=== PATIENT | female | born 1960 | race American Indian/Alaskan Native ===

== ENCOUNTER 2018-09-25 14:00 | Outpatient (CLI) | payer BC ==
--- NOTE | 2018-09-25 15:55 | Mammography Report ---
BILATERAL DIGITAL SCREENING MAMMOGRAM with CAD: 09/25/18 14:00:00 CLINICAL: Routine screening. COMPARISON:10/05/14 FINDINGS: The breasts are heterogeneously dense, which may obscure small masses. A left focal asymmetry at 12 o'clock requires additional imaging.No architectural distortion or suspicious calcifications.The right breast is negative. IMPRESSION: Left asymmetry requiring further workup. BI-RADS CATEGORY: 0 -- Additional Imaging Evaluation Required RECOMMENDATION: Recall for left spot compression views and left breast ultrasound if needed. COMMENT: 1. Dense breast tissue, i.e., adenosis, fibrocystic changes, etc., may obscure an underlying neoplasm. 2. Approximately 10% of cancers are not detected with mammography. 3. A negative mammography report should not delay biopsy if a clinically suspicious mass is present. COMMENT: Patient follow-up letters are generated via our [employer] application.
== END 2018-09-25 14:01 | disposition home or self-care (01) ==
LOC: SPVWC 14:00
PROVIDERS: ATTEND Internal Medicine
DX: Z12.31 Encounter for screening mammogram for malignant neoplasm of breast (principal)
CPT/HCPCS: 77067

== ENCOUNTER 2018-10-21 09:22 | Outpatient (CLI) | payer BC ==
--- NOTE | 2018-10-21 12:13 | Ultrasound Report ---
LEFT BREAST DIAGNOSTIC MAMMOGRAM LEFT BREAST ULTRASOUND HISTORY: Asymmetry COMPARISON: 09/25/2018 screening FINDINGS: Left Breast Mammogram: Spot magnification views of the left breast were performed and demonstrate a persistent asymmetry. Left Breast Ultrasound: Sonographic evaluation of the left breast at 12:00 demonstrated an irregular cyst with internal echoes versus solid mass. It measures 7 x 5 x 4 mm. IMPRESSION A 7 mm cyst versus solid mass at 12:00 left breast. Recommend ultrasound guided needle aspiration and core biopsy. The patient was informed of the recommendation. BI-RADS 4 Signer Name: Paul Ivan MD Signed: 10/21/2018 11:58 AM Workstation Name: [id number]
--- NOTE | 2018-10-21 14:26 | Mammography Report ---
LEFT DIAGNOSTIC MAMMOGRAM AND LEFT ULTRASOUND HISTORY: Recalled for asymmetry COMPARISON: 09/25/2018 screening FINDINGS: Mammogram: Spot magnification views demonstrate a persistent retroareolar asymmetry at 12:00. Breast Ultrasound: Sonographic evaluation of the left breast at 12:00 demonstrated a slightly irregu lar cyst versus solid mass at 12:00 2 cm from the nipple. It measures 7 x 5 x 4 mm. IMPRESSION Irregular cyst versus solid mass at 12:00 2 cm from the nipple left breast. Recommend ultrasound guid ed needle aspiration/biopsy. The patient was informed of the recommendation at the time of the exam. BIRADS 4: Suspicious abnormality. According to the [employer], yearly mammograms are recommended starting at age 40 and continuing as long as a woman is in good health. Clinical Breast Exams should be part of a period ic health exam-about every 3 years for women in their 20s and 30s and every year for women 40 and ove r. Breast self exam is an option for women starting in their 20s. Any breast change noted on a breast self exam should be reported promptly to the patient's healthcare provider. Breast MRI is recommende d for women with an approximately 20-25% or greater lifetime risk of breast cancer, including women w ith a strong family history of breast or ovarian cancer and women who have been treated for Hodgkin's disease. A negative Mammography report should not discourage follow up or biopsy of a clinically significant f inding and/or abnormality. Dense breast tissue may obscure small neoplasms. Signer Name: Paul Ivan MD Signed: 10/21/2018 2:12 PM Workstation Name: [id number]
== END 2018-10-21 09:23 | disposition home or self-care (01) ==
LOC: SPVWC 09:22
PROVIDERS: ATTEND Internal Medicine
DX: R92.8 Other abnormal and inconclusive findings on diagnostic imaging of breast (principal)

== ENCOUNTER 2018-11-28 10:09 | Outpatient (CLI) | payer BC ==
--- NOTE | 2018-11-28 11:39 | Mammography Report ---
DIGITAL DIAGNOSTIC MAMMOGRAM WITH CAD, 11/28/2018, POST PROCEDURE CLIP PLACEMENT INDICATION: Postprocedure clip placement following biopsy of left breast mass TECHNIQUE: Digital left mammographic imaging was performed. This examination was interpreted with the benefit of Computer-aided Detection analysis. COMPARISON: Prior mammogram, 09/25/2018 FINDINGS: Breast Density: There are scattered areas of fibroglandular density. There is no evidence of dominant mass, suspicious calcifications or architectural distortion in eithe r breast. A clip is present in the anterior aspect of the left breast at 12:00 and corresponds to pre viously described retroareolar asymmetry (area of concern). Following ultrasound-guided biopsy, the previously described retroareolar symmetry has nearly complet meliton resolved. IMPRESSION: Clip placement is concordant with mammographic abnormality described on most recent mammo gram. A "normal" or negative report should not discourage follow up or biopsy of a clinically significant f inding. A written summary of these findings will be mailed to the patient. The patient will be entered into a mammography reporting system which will generate a reminder letter for the patient's next appointmen t at the appropriate interval. FURTHER INFORMATION: According to the [employer], yearly mammograms are recommend ed starting at age 40 and continuing as long as a woman is in good health. Breast MRI is recommended for women with an approximately 20-25% or greater lifetime risk of breast cancer, including women wi th a strong family history of breast or ovarian cancer and women who have been treated for Hodgkin's disease. Signer Name: Yanique Brown MD Signed: 11/28/2018 11:35 AM Workstation Name: [id number]
--- NOTE | 2018-11-28 11:41 | Ultrasound Report ---
ULTRASOUND-GUIDED NEEDLE CORE BIOPSY Left BREAST WITH CLIP PLACEMENT CLINICAL: Patient has a hypoechoic mass in the left breast at 12:00. Biopsy is requested. FINDINGS: The procedure was explained to the patient and informed consent was obtained. Ultrasound demonstrated the previously identified hypoechoic mass in the 12:00 position, 2 cm from th e nipple.. I marked the breast with a felt tip marker and a timeout was called. The skin was prepped with Chloro -Prep and anesthetized with 1% lidocaine. Needle core biopsy was performed through small dermatotomy using ultrasound guidance, 2% lidocaine wi th epinephrine for deep anesthesia and a 14-gauge Achieve biopsy device. 3 cores were obtained and pl aced in formalin. A clip was deployed within the lesion. The patient tolerated the procedure well and there were no apparent convocations. Hemostasis was achi eved with minimal effort and a sterile dressing was applied. A post procedure mammogram demonstrated concordant clip deployment. She left the department in good c ondition and was given instructions for wound care and follow-up. IMPRESSION: Uncomplicated ultrasound guided needle core biopsy with clip placement left breast. Awaiting pathology results. Signer Name: Yanique Brown MD Signed: 11/28/2018 11:37 AM Workstation Name: [id number]
== END 2018-11-28 10:10 | disposition home or self-care (01) ==
LOC: SPVWC 10:09
PROVIDERS: ATTEND Surgery
DX: D24.2 Benign neoplasm of left breast (principal); N60.12 Diffuse cystic mastopathy of left breast
CPT/HCPCS: 88305